=== PATIENT | female | born 1990 | race Caucasian/White ===

== ENCOUNTER 2020-02-08 11:37 | Emergency (ER) | payer OTHER, SELFPAY ==
--- NOTE | ~2020-02-08 | XR_ITS ---
XR hand RT min 3V DATE: 02/08/2020 12:28 INDICATION: Punched a wall one week ago. Pain at second digit metacarpophalangeal joint TECHNIQUE: 3 views COMPARISON: None FINDINGS: There is a very subtle small linear opaque density at the anterior aspect of the proximal i nterphalangeal joint of the third digit, possibly recent or more likely old small cortical avulsion f racture. No other fracture or dislocation. No periosteal reaction or bone destruction, erosive change or chond rocalcinosis. IMPRESSION: Subtle small linear cortical avulsion fracture of uncertain age, likely old, at the anter ior aspect of the proximal interphalangeal joint of the third digit; no other fracture is evident Reviewed, dictated and finalized at location A. IMPRESSION: Subtle small linear cortical avulsion fracture of uncertain age, donna casper old, at the anterior aspect of the proximal interphalangeal joint of the t hird digit; no other fracture is evident
[2020-02-08 11:50] VITALS: BP 105/61; PULSE 60; RESP 16; TEMP 37.2; O2SAT 100
--- NOTE | 2020-02-08 12:02 | ED.GENADULT ---
HPI - General Adult General Chief complaint: Urogenital-Female Stated complaint: poss exposure to std Time Seen by Provider: 02/08/20 12:02 Source: patient and RN notes reviewed Mode of arrival: ambulatory Limitations: no limitations History of Present Illness HPI narrative: 30-year-old female presents with vaginal irritation, discharge, ex-boyfriend sent her an email telling her that he cheated on her and was diagnosed with Gonorrhea, and dysuria for the past 2 days. No treatment. No significant pelvic pain. Denies fever or chills. No history of STDs. No new partners. Sexually active. Unprotected intercourse with ex-boyfriend. Denies multiple partners. Does not douche. No exacerbating factors. Denies hematuria or vaginal bleeding. Unsure if she is , LMP 12/18/19.? No flank pain. Denies nausea, vomiting, and abdominal pain.? Tolerating liquids well.? Remains active. The patient reports she have not been diagnosed with COVID-19. The patient reports she is not waiting for the results of a COVID-19 lab test. The patient reports she do not have fever, chills, weakness, or fatigue. The patient reports she do not have a new or worsening cough or shortness of breath. Denies chest pain. The patient reports she do not have any rhinorrhea, congestion, sore throat, and diarrhea. Denies recent traveling. Denies concerns for COVID-19 or exposures been home with limited outdoor exposure except for essential household needs nd return home. At this time, patient is not suspected of having COVID-19. Complains of right hand-2nd (index) finger pain and swelling for the past 5 days. No treatment. Hit a wall when she became upset her and her boyfriend was splitting up. No radiation of pain. No loss of mobility. Exacerbating factors consist of movement. The relieving factors is immobility. Dominant hand is the RIGHT HAND. No suspected abuse. Some parts of this dictation were generated by voice recognition software and may contain typographical and/or grammatical inaccuracies. Related Data Home Medications Medication Instructions Recorded Confirmed albuterol sulfate 2 puff INHALATION QID PRN 05/28/19 02/08/20 beclomethasone dipropionate [Qvar 2 inh INHALATION Q12H 05/28/19 02/08/20 RediHaler] clonazepam 0.5 mg PO BID 05/28/19 02/08/20 albuterol sulfate 2.5 mg INHALATION DIRECTED 02/08/20 02/08/20 Allergies Allergy/AdvReac Type Severity Reaction Status Date / Time acetaminophen Allergy Unknown Nausea and Verified 02/08/20 11:41 Vomiting doxycycline Allergy Unknown Rash Verified 02/08/20 11:41 hydrocodone Allergy Unknown Nausea and Verified 02/08/20 11:41 Vomiting Review of Systems Review of Systems: Narrative: CONSTITUTIONAL: Denies fever, chills, sweats. EYES: Denies visual changes, redness, discharge. ENT: Denies rhinorrhea, congestion, sore throat, otalgia. CARDIOVASCULAR: Denies chest pain, palpitations, edema. RESPIRATORY: Denies dyspnea, wheezing, cough. GASTROINTESTINAL: Denies abdominal pain, nausea, vomiting, diarrhea. GENITOURINARY: Complains of dysuria (frequent and urgency), vaginal irritation, abnormal discharge. Denies hematuria. SKIN: Denies rash or itching. MUSCULOSKELETAL: Denies acute back pain, myalgia. Complains of Right hand 2nd (index) finger, swelling and pain. NEUROLOGIC: Denies numbness or focal weakness. PSYCHIATRIC: Denies anxiety or depression. All systems reviewed & are unremarkable except as noted in HPI and below. COUNT INCLUDES THE [facility] Past Medical History Medical History Anxiety Asthma Kidney filling defect Ovarian cyst PTSD (post-traumatic stress disorder) Surgical History Surgical History H/O dilation and curettage History of exploratory laparotomy History of ovarian cystectomy Family History Family History (Reviewed 02/08/20 @ 12:21 by JULIO Shahid
[2020-02-08] MEDS: AZITHROMYCIN 250 MG TABLET 1000 MG PO (12:36)
[2020-02-08] MEDS: LIDOCAINE HCL 1% LOCAL INJ 20 ML VIAL INFILTRATE (12:37)
[2020-02-08] MEDS: cefTRIAXone 250 MG VIAL IM (12:37)
== END 2020-02-08 13:00 | disposition home or self-care (01) ==
PROVIDERS: Emergency Provider Nurse Practitioner Family
DX: N76.0 Acute vaginitis (principal); S63.91XA Sprain of unspecified part of right wrist and hand, initial encounter; W22.8XXA Striking against or struck by other objects, initial encounter; Z87.891 Personal history of nicotine dependence; J45.909 Unspecified asthma, uncomplicated; F43.10 Post-traumatic stress disorder, unspecified; F41.9 Anxiety disorder, unspecified
CPT/HCPCS: 73130; 81003; 81025; 87086; 87491; 87591; 87661; 96372; 99214; A9270; G0463; J0696

== ENCOUNTER 2020-12-31 14:48 | Emergency (ER) | payer OTHER, SELFPAY ==
--- NOTE | 2020-12-31 14:52 | ED.FEMALEGU ---
HPI - Female Genitourinary General Chief complaint: Urogenital-Female Stated complaint: Possible UTI/Possible Sinus Infection Time Seen by Provider: 12/31/20 14:52 Source: patient and RN notes reviewed History of Present Illness HPI Narrative: Patient is a 30-year-old female who presents the urgent care with complaints of a possible UTI and/or sinus infection. Patient states that she has had sinus congestion and a lot of fullness in her face for the last couple days. Patient states that she is off-and-on used a nasal spray as well as Tylenol for the pressure. Denies of any fevers, nausea, vomiting. 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 Patient states that she has had urinary frequency for the last 2 days but denies of any fevers or abdominal pain. Denies of any blood in the urine. Patient is uncertain when the last time she was treated for UTI but states that she believes it was Macrobid. No other acute complaints. No acute distress noted. Patient aware of the plan of care. Some parts of this dictation were generated by voice recognition software and may contain typographical and/or grammatical inaccuracies. Related Data Home Medications Medication Instructions Recorded Confirmed albuterol sulfate 2 puff INHALATION QID PRN 05/28/19 02/08/20 beclomethasone dipropionate [Qvar 2 inh INHALATION Q12H 05/28/19 02/08/20 RediHaler] clonazepam 0.5 mg PO BID 05/28/19 02/08/20 albuterol sulfate 2.5 mg INHALATION DIRECTED 02/08/20 02/08/20 Allergies Allergy/AdvReac Type Severity Reaction Status Date / Time acetaminophen Allergy Unknown Nausea and Verified 12/31/20 14:53 Vomiting doxycycline Allergy Unknown Rash Verified 12/31/20 14:53 hydrocodone Allergy Unknown Nausea and Verified 12/31/20 14:53 Vomiting Review of Systems Review of Systems: Narrative: CONSTITUTIONAL: Denies fever, chills, or sweats. EYES: Denies visual changes, redness, or discharge. ENT: Reports of facial sinus congestion and rhinorrhea CARDIOVASCULAR: Denies chest pain, palpitations, or edema. RESPIRATORY: Denies cough or dyspnea. GASTROINTESTINAL: Denies abdominal pain, nausea, vomiting, or diarrhea. GENITOURINARY: Reports of urinary frequency SKIN: Denies rash or itching. MUSCULOSKELETAL: Denies back pain, joint pain, or myalgia. NEUROLOGIC: Denies headache, numbness, or weakness. All other systems reviewed are negative, except as documented in HPI. [facility] Past Medical History Medical History (Updated 12/31/20 @ 15:07 by LAURITA Abreu) Anxiety Asthma Kidney filling defect Ovarian cyst PTSD (post-traumatic stress disorder) Surgical History Surgical History H/O dilation and curettage History of exploratory laparotomy History of ovarian cystectomy Family History Family History Father Unknown family medical history Grandparent Diabetes mellitus Mother Hypertension Cervical cancer Social History Social History Smoking status: Former smoker Smoking end date: 07/16/15 Alcohol intake: never Substance use: current Substance use type: marijuana Gender identity (if verbalized by the patient): Female Comments At the time of my signature, I reviewed and agree with the nursing past medical, surgical, social, and family history. There is no relevant family history pertinent to the patient complaint. Exam Narrative: Exam Narrative: GENERAL: This is a well-nourished, well-developed patient, in no apparent distress. HEAD: normocephalic, atraumatic. Frontal sinus tenderness EYES: PERRL. Sclera clear/white. Vision is grossly intact. EARS: External ears normal, auditory canals clear and without drainage, TMs normal without perforation. Hearing grossly inta
[2020-12-31 14:54] VITALS: BP 128/82; PULSE 92; RESP 18; TEMP 37.1; O2SAT 99
[2020-12-31 15:05] VITALS: BP 128/82; PULSE 92; RESP 18; TEMP 37.1; O2SAT 99
== END 2020-12-31 15:25 | disposition home or self-care (01) ==
PROVIDERS: Emergency Provider Nurse Practitioner Family; PCP Internal Medicine Gastroenterology
DX: J32.1 Chronic frontal sinusitis (principal); R35.0 Frequency of micturition; Z87.891 Personal history of nicotine dependence; J45.909 Unspecified asthma, uncomplicated; F41.9 Anxiety disorder, unspecified
CPT/HCPCS: 81003; 99213; G0463